=== PATIENT | female | born 1965 | race Caucasian/White ===

== ENCOUNTER 2016-10-19 09:31 | Emergency (ER) | payer MEDICAID ==
[~2016-10-19] VITALS: Ht 152.4 cm; Wt 68.0 kg
[2016-10-19 09:31] VITALS: BP_SYST 142
[2016-10-19] MEDS ORDERED: KETOROLAC TROMETHAMINE 60 MG/2 ML VIAL IM ONE (10:30)
[2016-10-19 11:02] VITALS: BP_SYST 138
== END 2016-10-19 11:02 | disposition home or self-care (01) ==
LOC: SED 09:31
DX: S43.401A Unspecified sprain of right shoulder joint, initial encounter (principal); X58.XXXA Exposure to other specified factors, initial encounter; Y93.G1 Activity, food preparation and clean up; Y92.090 Kitchen in other non-institutional residence as the place of occurrence of the external cause; Y99.8 Other external cause status
CPT/HCPCS: 96372; 99283; J1885